=== PATIENT | male | born 1940 | race Caucasian/White ===

== ENCOUNTER → 2017-04-19 | Outpatient (CLI) | payer OTHER | LOC: BMCIMAGING 11:39 | PROVIDERS: ATTEND Family Medicine | DX: S69.92XA Unspecified injury of left wrist, hand and finger(s), initial encounter (principal); M18.32 Unilateral post-traumatic osteoarthritis of first carpometacarpal joint, left hand ==

== ENCOUNTER → 2017-05-16 | Outpatient (CLI) | payer OTHER | LOC: BMCIMAGING 10:11 | PROVIDERS: ATTEND Physician Assistant | DX: S52.502D Unspecified fracture of the lower end of left radius, subsequent encounter for closed fracture with routine healing (principal) ==

== ENCOUNTER 2018-12-18 19:45 | Observation (INO) | payer OTHER ==
--- NOTE | 2018-12-18 19:44 | EDPHY ---
HPI/HX/ROS/PE/MDM Narrative: CHIEF COMPLAINT: Syncope HPI: This patient is a 78-year-old male with history of CAD s/p stent placement, hypertension, hypothyroid. He arrives today via EMS following a syncopal event. He had eaten dinner out at [employer] with family. He felt well during the meal, but afterwards was sitting and felt as if the blood was draining out of his head. He announced he felt he was going to pass out and had a syncopal event in which he slumped forward in his chair. His family members caught him, and they deny any trauma. Family states he was unconscious about one minute. No tonic-clonic activity noted. After this he appeared dizzy and diaphoretic. Family called EMS. The patient had one episode of vomiting in transport. EMS administered 325mg ASA and 4mg Zofran. Currently, the patient feels well. 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 No chest pain at that time. He was evaluated at this ED, had stent placement one week after. The patient denies any current chest pain, shortness of breath, fever, or other associated symptoms. REVIEW OF SYSTEMS: A comprehensive 10 system review of systems is otherwise negative aside from elements mentioned in the history of present illness and medical decision making. PMH: CAD s/p stent placement. Hypertension. Hyperlipidemia. Hypothyroid. SOCIAL HISTORY: Family at bedside. PHYSICAL EXAM: General:Patient is alert, in no acute distress. ENT:Eyes are normal to inspection. ENT inspection normal. Neck: Normal inspection. Full range of motion. Respiratory:No respiratory distress. Breath sounds normal bilaterally. Cardiovascular: Regular rate and rhythm. Strong peripheral pulses. Normal cap refill. Abdomen:The abdomen is nontender to palpation. There are no peritoneal signs. There are normal bowel sounds. Back: Normal to inspection. No tenderness to palpation. Skin: Normal color. No rash. Warm and dry. Extremities: Normal appearance. Full range of motion. Neuro: Oriented x3. Normal motor function. Normal sensory function. ED Course: 19:45 Met EMS on arrival. 78 y/o male with history of CAD s/p stent placement presents following a syncopal event this evening at dinner. Plan for EKG, labs including CBC, chemistries, POC troponin. 20:11 EKG was ordered and interpreted by myself. Please see [facility] system for official reading. POC Troponin negative. 20:51 Reassessed. Discussed imaging and laboratory results. I recommended admission for monitoring and cardiology follow up in the morning tomorrow. Patient's family member at bedside notes he has had several similar events in the past which seem to be associated with rich foods. The patient and his family are amenable to the plan for admission. 22:08 Spoke with hospitalist service. Dr. Long accepts admission to PCU for syncope. - Data Points Laboratory Results: Laboratory Results 12/18/18 19:45 12/18/18 19:45 12/18/18 12/18/18 12/18/18 20:05 19:45 19:45 WBC 12.15 10^3/uL H 10^3/uL (3.80-9.50) RBC 4.24 10^6/uL L 10^6/uL (4.40-6.38) Hgb 13.3 g/dL L g/dL (13.7-17.5) Hct 40.3 % % (40.0-51.0) MCV 95.0 fL fL (81.5-99.8) MCH 31.4 pg pg (27.9-34.1) MCHC 33.0 g/dL g/dL (32.4-36.7) RDW 13.8 % % (11.5-15.2) Plt Count 312 10^3/uL 10^3/uL (150-400) MPV 10.3 fL fL (8.7-11.7) Neut % (Auto) 55.0 % % (39.3-74.2) Lymph % (Auto) 32.0 % % (15.0-45.0) [place] % (Auto) 9.9 % % (4.5-13.0) Eos % (Auto) 2.1 % % (0.6-7.6) Baso % (Auto) 0.7 % % (0.3-1.7) Nucleat RBC Rel Count 0.0 % % (0.0-0.2) Absolute Neuts (auto) 6.69 10^3/uL H 10^3/uL (1.70-6.50) Absolute Lymphs (auto) 3.89 10^3/uL H 10^3/uL (1.00-3.00) Absolute Monos (auto) 1.20 10^3/uL H 10^3/uL (0.30-0.80) Absolute Eos (auto) 0.25 10^3/uL 10^3/uL (0.03-0.40) Absolute Basos (auto) 0.08 10^3/uL 10^3/uL (0.02-0.10) Absolute Nucleated RBC 0.00 10^3/uL 10^3/uL (0-0.01) Immature Gran % 0.3 % % (0.0-1.1) Immature Gran # 0.04 10^3/uL 10^3/uL (0.00-0.10) Sodium 134 mEq/L L mEq/L (135-145) Potassium 3.9 mEq/L mEq/L (3.5-5.2) Chloride 103 mEq/L mEq/L (97-110) Carbon Dioxide 16 mEq/l L mEq/l (22-31) Anion Gap 15 mEq/L H mEq/L (6-14) BUN 23 mg/dL mg/dL (7-23) Creatinine 1.3 mg/dL mg/dL (0.7-1.3) Estimated GFR 54 Glucose 121 mg/dL H mg/dL (70-100) Calcium 9.2 mg/dL mg/dL (8.5-10.4) POC Troponin I 0.00 ng/mL ng/mL (0.00-0.08) Medications Given: Discontinued Medications Sodium Chloride (Ns) 1,000 mls @ 0 mls/hr IV EDNOW ONE; Wide Open PRN Reason: Protocol Stop: 12/18/18 19:49 Last Admin: 12/18/18 19:55 Dose: 1,000 mls Lorazepam (Ativan Injection) 1 mg IVP EDNOW ONE Stop: 12/18/18 21:17 Last Admin: 12/18/18 21:18 Dose: Not Given Point of Care Test Results: Chemistry 12/18/18 20:05 POC Troponin I 0.00 ng/mL ng/mL (0.00-0.08) General Time Seen by Provider: 12/18/18 19:45 Initial Vital Signs: Initial Vital Signs Temperature (C) 36.4 C 12/18/18 19:49 Heart Rate 62 12/18/18 19:49 Respiratory Rate 18 12/18/18 19:49 Blood Pressure 112/61 12/18/18 19:49 O2 Sat (%) 97 12/18/18 19:49 O2 Delivery Mode Room Air Allergies/Adverse Reactions: doxazosin mesylate [From Cardura] Allergy (Mild, Verified 03/06/11 11:36) Hypotension Home Medications: Medication Instructions Recorded Alfuzosin HCl [Alfuzosin HCl ER] 10 mg PO DAILY 12/18/18 Aspirin EC [Aspirin EC 81 mg (*)] 81 mg PO DAILY 12/18/18 Dapsone 50 mg PO DAILY@06 12/18/18 Levothyroxine [Synthroid 100 mcg 100 mcg PO DAILY06 12/18/18 (*)] Metoprolol Succinate Xr [Toprol Xl 25 mg PO HS 12/18/18 25 mg (*)] Multivitamins [Multivitamin (*)] 1 each PO DAILY 12/18/18 Pravastatin Sodium 20 mg PO HS 12/18/18 Departure - Departure Disposition: [facility] Inpatient Acute Clinical Impression: Syncope Qualifiers: Syncope type: unspecified Qualified Code(s): R55 - Syncope and collapse Condition: Fair Referrals: Patient,NotPresent [Unknown] - As per Instructions Report Scribed for: Estrada Quarles Report Scribed by: Jodie Robbins Date of Report: 12/18/18 Time of Report: 19:44 Physician Review and Approval Statement: Portions of this note were transcribed by an ED scribe. I personally performed the history, physical exam, and medical decision making; and confirm the accuracy of the information in the transcribed note.
[2018-12-18] MEDS ORDERED: NS 1,000 ML IV ONE (19:48)
[2018-12-18 20:26] LABS: PLATELET COUNT 312 10^3/uL (150-400)
[2018-12-18] MEDS ORDERED: LORazepam 2 MG/ML INJ IVP ONE (21:16)
[2018-12-18] MEDS ORDERED: ONDANSETRON DISINTEGRATING 4 MG TAB PO PRN (22:11)
[2018-12-18] MEDS ORDERED: ACETAMINOPHEN 325 MG TAB PO PRN (22:11)
[2018-12-18] MEDS ORDERED: ONDANSETRON 4 MG/2 ML VIAL IVP PRN (22:11)
--- NOTE | 2018-12-18 22:31 | CPEKG ---
Test Reason : OPEN Blood Pressure : / mmHG Vent. Rate : 072 BPM Atrial Rate : 071 BPM P-R Int : 188 ms QRS Dur : 090 ms QT Int : 456 ms P-R-T Axes : 086 063 046 degrees QTc Int : 500 ms Sinus rhythm Consider left ventricular hypertrophy Borderline prolonged QT interval Confirmed by Estrada Quarles ([id number]) on 12/18/2018 10:31:15 PM Referred By: Estrada Quarles Confirmed By:Estrada Quarles
--- NOTE | 2018-12-19 00:55 | PDGENHP ---
History and Physical - Chief Complaint Syncope - History of Present Illness 78 yo M w/ hx of CAD, HTN, and hypothyroid presents after syncopal event. The patient went out for dinner this evening. After dinner he felt like "the blood was draining out of his head" and he slumped over in his chair. He returned to baseline mental status quickly with no seizure like activity or chest pain. He vomited en route to the ED with EMS. At the time of my evaluation he is asymptomatic. He tells me this has happened several times before, usually associated with meals. He had an abnormal stress test and stent placement at [facility] in 2012. His work-up here is thus far unremarkable. He is being admitted for observation. Case discussed with ED physician Dr. Quarles; records reviewed and summarized above. History Information - Allergies/Home Medication List Allergies/Adverse Reactions: doxazosin mesylate [From Cardura] Allergy (Mild, Verified 03/06/11 11:36) Hypotension Home Medications: Alfuzosin HCl [Alfuzosin HCl ER] 10 mg PO DAILY 12/18/18 [Last Taken 12/18/18] Aspirin EC [Aspirin EC 81 mg (*)] 81 mg PO DAILY 12/18/18 [Last Taken 12/18/18] Dapsone 50 mg PO DAILY@06 12/18/18 [Last Taken 12/18/18] Levothyroxine [Synthroid 100 mcg (*)] 100 mcg PO DAILY06 12/18/18 [Last Taken ] Metoprolol Succinate Xr [Toprol Xl 25 mg (*)] 25 mg PO HS 12/18/18 [Last Taken 12/17/18] Multivitamins [Multivitamin (*)] 1 each PO DAILY 12/18/18 [Last Taken 12/18/18] Pravastatin Sodium 20 mg PO HS 12/18/18 [Last Taken 12/17/18] I have personally reviewed and updated: family history, medical history - Past Medical History coronary artery disease, hypertension Additional medical history: Hypothyroid - Surgical History Reports: coronary stent - Family History Additional family history: Alzheimer's dementia - Social History Smoking Status: Never smoked Review of Systems Review of Systems: ROS: 10pt was reviewed & negative except for what was stated in HPI & below Physical Exam Physical Exam: Temp Pulse Resp BP Pulse Ox 36.8 C 59 L 17 149/83 H 90 L 12/18/18 23:13 12/18/18 23:13 12/18/18 23:13 12/18/18 23:13 12/18/18 23:13 Constitutional: no apparent distress, not in pain Eyes: PERRL, EOMI Ears, Nose, Mouth, Throat: moist mucous membranes, no oral mucosal ulcers Cardiovascular: regular rate and rhythym, systolic murmur (3/6 systolic murmur @ RUSB) Respiratory: no respiratory distress, clear to auscultation Gastrointestinal: normoactive bowel sounds, soft, non-tender abdomen Skin: warm, normal color Musculoskeletal: full muscle strength, no muscle tenderness Neurologic: AAOx3, CN II-XII Intact Psychiatric: interacting appropriately, not anxious Lab Data & Imaging Review 12/18/18 19:45 12/18/18 19:45 WBC 12.15 10^3/uL (3.80-9.50) H 12/18/18 19:45 RBC 4.24 10^6/uL (4.40-6.38) L 12/18/18 19:45 Hgb 13.3 g/dL (13.7-17.5) L 12/18/18 19:45 Hct 40.3 % (40.0-51.0) 12/18/18 19:45 MCV 95.0 fL (81.5-99.8) 12/18/18 19:45 MCH 31.4 pg (27.9-34.1) 12/18/18 19:45 MCHC 33.0 g/dL (32.4-36.7) 12/18/18 19:45 RDW 13.8 % (11.5-15.2) 12/18/18 19:45 Plt Count 312 10^3/uL (150-400) 12/18/18 19:45 MPV 10.3 fL (8.7-11.7) 12/18/18 19:45 Neut % (Auto) 55.0 % (39.3-74.2) 12/18/18 19:45 Lymph % (Auto) 32.0 % (15.0-45.0) 12/18/18 19:45 [place] % (Auto) 9.9 % (4.5-13.0) 12/18/18 19:45 Eos % (Auto) 2.1 % (0.6-7.6) 12/18/18 19:45 Baso % (Auto) 0.7 % (0.3-1.7) 12/18/18 19:45 Nucleat RBC Rel Count 0.0 % (0.0-0.2) 12/18/18 19:45 Absolute Neuts (auto) 6.69 10^3/uL (1.70-6.50) H 12/18/18 19:45 Absolute Lymphs (auto) 3.89 10^3/uL (1.00-3.00) H 12/18/18 19:45 Absolute Monos (auto) 1.20 10^3/uL (0.30-0.80) H 12/18/18 19:45 Absolute Eos (auto) 0.25 10^3/uL (0.03-0.40) 12/18/18 19:45 Absolute Basos (auto) 0.08 10^3/uL (0.02-0.10) 12/18/18 19:45 Absolute Nucleated RBC 0.00 10^3/uL (0-0.01) 12/18/18 19:45 Immature Gran % 0.3 % (0.0-1.1) 12/18/18 19:45 Immature Gran # 0.04 10^3/uL (0.00-0.10) 12/18/18 19:45 Sodium 134 mEq/L (135-145) L 12/18/18 19:45 Potassium 3.9 mEq/L (3.5-5.2) 12/18/18 19:45 Chloride 103 mEq/L (97-110) 12/18/18 19:45 Carbon Dioxide 16 mEq/l (22-31) L 12/18/18 19:45 Anion Gap 15 mEq/L (6-14) H 12/18/18 19:45 BUN 23 mg/dL (7-23) 12/18/18 19:45 Creatinine 1.3 mg/dL (0.7-1.3) 12/18/18 19:45 Estimated GFR 54 12/18/18 19:45 Glucose 121 mg/dL (70-100) H 12/18/18 19:45 Calcium 9.2 mg/dL (8.5-10.4) 12/18/18 19:45 POC Troponin I 0.00 ng/mL (0.00-0.08) 12/18/18 20:05 Visualized and Interpreted EKG results: Yes EKG Interpretation: Positive for: normal sinsus rhythm, other (Qtc 500) Assessment & Plan Assessment: 78 yo M w/ hx of CAD, HTN, and hypothyroid presents after syncopal event. Plan: 1. Syncope - History consistent with vasovagal event noting this occurred after dinner and followed by vomiting. He has had several similar episodes in the past. He does, however, have a fairly significant murmur on exam so I feel a TTE is reasonable in this case. - Observe in PCU - Monitor on telemetry - TTE ordered to evaluate significant murmur 2. Hx CAD - With stent placement at [facility] in 2012. Denies chest pain at this time, ECG does not demonstrate acute ischemia and troponin is negative. - Continue home medications 3. Hypothyroid - Continue LTX 4. Hyponatremia - Mild, possibly due to vomiting. - Repeat BMP in the morning after IVF 5. Leukocytosis - Suspect reactive, no signs or symptoms of infection. - Monitor CBC Diet - Regular Code - Full Ppx - LMWH Dispo - Admit under observation status
[2018-12-19 04:43] LABS: PLATELET COUNT 257 10^3/uL (150-400)
[2018-12-19] MEDS ORDERED: LEVOTHYROXINE 100 MCG TAB PO SCH (06:00)
[2018-12-19] MEDS ORDERED: DAPSONE 100 MG TAB PO SCH (06:00)
[2018-12-19 07:18] VITALS: BP 150/81
[2018-12-19] MEDS ORDERED: ASPIRIN EC 81 MG TAB PO SCH (09:00)
[2018-12-19] MEDS ORDERED: MULTIVITAMINS 1 EACH TAB PO SCH (09:00)
[2018-12-19] MEDS ORDERED: Alfuzosin Hcl [Alfuzosin Hcl Er] 10 MG PO SCH (09:00)
[2018-12-19] MEDS ORDERED: ENOXAPARIN 40 MG/0.4 ML SYR SC SCH (09:00)
--- NOTE | 2018-12-19 10:41 | ECHO ---
[email or web address] [address] Main: [phone] Echocardiography Examination Transthoracic Name: BETTY ACOSTA MR#: [id number] Study Date: 12/19/2018 Study Time: 08:25 AM Date of : 1940 Age: 78 year(s) Height: 182.9 cm (72 in.) Weight: 79.38 kg (175 lb.) BSA: 2.01 m2 Gender: Male Examination: Echo Contrast: Image Quality: Adequate Rhythm: Heart Rate: 69 bpm BP: 150 mmHg/81 mmHg Indication: Cardiac: syncope, Murmur Procedure Staff Referring Physician: [employer]der Mill Operator: Toya Reese [facility] Reading Physician: Andrew Souza MD Requesting Provider: Ordering Physician: Jorge L Ghosh Indication: Cardiac: syncope, Murmur Measurements Chambers AV/MV Label Value Normal Value Label Value Normal Value LVOTd 2.2 cm (1.9cm - 2.1cm) AR PHT 0.95 s LVOT VTI 24.6 cm (18cm - 22cm) AR PHT 945 ms LVDd, 2D 4.4 cm (4.2cm - 5.9cm) AR Vmax 3.11 m/s LVDs, 2D 2.8 cm (2.1cm - 4cm) AV PGmax 33 mmHg IVSd, 2D 1.1 cm (0.6cm - 1.1cm) AV PGmean 20 mmHg LVPWd, 2D 0.9 cm (0.6cm - 1cm) AV Vmax 2.89 m/s LVEF, BP 65 % (55% - 70%) DESTIN (VTI) 1.2 cm2 LVEF, 2D 68 % (54% - 74%) MV E Vmax 0.72 m/s LVOT PGmean 2 mmHg MV A Vmax 0.97 m/s LVOT Vmean 0.75 m/s MV E/A 0.74 RVDd, 2D 4 cm (1.9cm - 3.8cm) MV E/E' lateral 11.7 TAPSE 2.3 cm MV E/E' septal 11.7 (0.45 - 1.25) LA Volume, BP 75 ml (18ml - 58ml) MV DT 197 ms LADs, 2D 4.1 cm (3cm - 4cm) MV E' septal 0.06 m/s LAESV index, BP 37.3 ml/m2 MV E' lateral 0.06 m/s RA Area 20 cm2 MV E/E' mean 12 Additional Vessels MV E' mean 0.06 m/s Label Value Normal Value TV/PV AoAsc 3.5 cm Label Value Normal Value Patient: BETTY ACOSTA Study Date: 12/19/2018 Page 1 of 3 08:25 AM AoRoot, 2D 3.6 cm (1.4cm - 2.6cm) RA Pressure 7 mmHg RVSP 39 mmHg TR Pmax 32 mmHg TR Vmax 2.84 m/s PV PGmax 2 mmHg PV Vmax, Caliper 0.74 m/s (0.6m/s - 0.9m/s) Conclusions Left Ventricle: CONCLUSIONS:1)Normal LV size and systolic function with a LVEF of 65% and normal wall motions.2)Mild concentric LVH with mild diastolic dysfunction noted.3)Mild to moderate left atrial and mild right atrial enlargement(s) noted.4)Mild to moderate and mild AI noted.5)Mild MR without MV prolapse.6)Mild TR with upper normal PA pressures (PAS=39mmHg). Findings Left Ventricle: Left ventricle is normal in size. CONCLUSIONS: 1)Normal LV size and systolic function with a LVEF of 65% and normal wall motions. 2)Mild concentric LVH with mild diastolic dysfunction noted. 3)Mild to moderate left atrial and mild right atrial enlargement(s) noted. 4)Mild to moderate and mild AI noted. 5)Mild MR without MV prolapse. 6)Mild TR with upper normal PA pressures (PAS=39mmHg). EF evaluated by EF (biplane Abel's). The ejection fraction, measured by Simpsons method, is 65 %. There is mild concentric left ventricular hypertrophy. There are no regional wall motion abnormalities. Grade I Diastolic Dysfunction. Mild Left ventricular hypertrophy . Right Ventricle: Upper normal size right ventricle. Right ventricular systolic function is normal. Left Atrium: The left atrium is mildly to moderately dilated. Right Atrium: The right atrium is mildly dilated. Mitral Valve: Mild mitral regurgitation. No mitral valve stenosis. There is a focal calcification on the tip of the mitral anterior leaflet . There is mild mitral thickening. There is mild mitral annular calcification. Aortic Valve: Mild aortic regurgitation is present. There is mild to moderate aortic stenosis. Aortic leaflets exhibit mild to moderate calcification. The aortic valve is trileaflet. Aortic Valve Measurements AV Vmax is 2.89 m/s. AV PGmax is 33 mmHg. AV PGmean is 20 mmHg. DESTIN (VTI) is 1.2 cm2. Tricuspid Valve: Tricuspid valve leaflets are normal in appearance and function. Mild tricuspid regurgitation. No tricuspid valve stenosis. Right Ventricular systolic pressure is measured at 39 mmHg. Pulmonary artery pressure is mildly increased. Pulmonic Valve: Pulmonic valve is poorly visualized. No pulmonic valve regurgitation is evident. Aorta: The aorta is normal. The aortic root size in 2D measures 3.6 cm. The aortic root exhibits normal size. The ascending aorta measures 3.5 cm. Ascending aorta is normal in size. Aorta Measurements AoRoot, 2D is 3.6 cm. IVC: The inferior vena cava is normal in size and course. Pericardium: Patient: BETTY ACOSTA Study Date: 12/19/2018 Page 2 of 3 08:25 AM No pericardial effusion. Exam Details Procedure Ordered: Echo Procedure Status: Routine study Image Quality: Adequate Facility Location: Cardiac Echo 1 (No Signature Object) Patient: BETTY ACOSTA Study Date: 12/19/2018 Page 3 of 3 08:25 AM [id number]
--- NOTE | 2018-12-19 11:36 | PDDCSUM ---
Discharge Summary Discharge Summary: Date of Admission: 12/18/2018 Date of Discharge: 12/19/2018 Procedures: TTE Followup: Cardiology, Dr. Truong, PCP, Dr. Ribeiro Hospital Course Problem List: 78 yo M w/ hx of CAD, HTN, and hypothyroid presents after syncopal event. Plan: 1. Syncope - History consistent with vasovagal event noting this occurred after dinner and followed by vomiting. He has had several similar episodes in the past. - Monitored on telemetry without acute abnormality - Trop negative x3, EKG without acute ST-T wave changes - TTE performed which shows mild to moderate , normal LV size and systolic function, EF 65% and no RWMA - Patient to followup with Financial Services Representative, Dr. Truong, within 1-2 weeks after discharge to review hospitalization and further evaluate and management TTE findings 2. Hx CAD - With stent placement at [facility] in 2012. Denies chest pain at this time, ECG does not demonstrate acute ischemia and troponins are negative. - Continue home medications 3. Hypothyroid - Continue LTX 4. Hyponatremia - Mild, possibly due to vomiting. - Improved to 135 morning of discharge 5. Leukocytosis - Suspect reactive, no signs or symptoms of infection. - Improved to 7.7 on morning of discharge
--- NOTE | 2018-12-19 11:45 | ASMTLACE ---
LACE Length of stay for Answers: Less than 1 day current admission Acuity / Level of Answers: No Care: Did the patient have an inpatient admission? Comorbidities - select Answers: Coronary Artery Disease all that apply Other Notes: HTN # of Emergency department Answers: 1-2 visits in the last 6 months Score: 4 Date Signed: 12/19/2018 11:44 AM Electronically Signed By:Rebecca Estrella RN
--- NOTE | 2018-12-19 11:45 | ASMTCMCOM ---
CM Note CM Note Notes: Reviewed chart, pt admitted to hospital for a syncopal episode after dinner at a restaurant. Pt has experienced this several times in the past and considered more vasovagal in nature. He does have a murmur noted and shalini have a TTE. Pt lives at home with his , anticipate he will dc home when medically stable. CM available for any changes. DC Plan: Independent Date Signed: 12/19/2018 11:43 AM Electronically Signed By:Rebecca Estrella RN
[2018-12-19] MEDS ORDERED: METOPROLOL SUCCINATE XR 25 MG TAB PO SCH (21:00)
[2018-12-19] MEDS ORDERED: PRAVASTATIN SODIUM 20 MG TAB PO SCH (21:00)
== END 2018-12-19 13:45 | disposition home or self-care (01) ==
LOC: EDUNIT# → EDBD → F2W 23:07
PROVIDERS: ADMIT Student in an Organized Health Care Education/Training Program; ATTEND Student in an Organized Health Care Education/Training Program
DX: R55 Syncope and collapse (principal); E86.9 Volume depletion, unspecified; E87.1 Hypo-osmolality and hyponatremia; I25.10 Atherosclerotic heart disease of native coronary artery without angina pectoris; Z95.5 Presence of coronary angioplasty implant and graft; I10 Essential (primary) hypertension; E78.5 Hyperlipidemia, unspecified; E03.9 Hypothyroidism, unspecified
CPT/HCPCS: 93005; 93306; 96361; 96372; 96374; 99285; G0378; J1650; 84484-ER

== ENCOUNTER 2018-12-30 19:36 | Observation (INO) | payer OTHER ==
[2018-12-30] MEDS ORDERED: NS 1,000 ML IV ONE (19:45)
[2018-12-30 19:59] LABS: PLATELET COUNT 319 10^3/uL (150-400)
--- NOTE | 2018-12-30 20:14 | EDPHY ---
H & P Stated Complaint: near-syncope, bradycardia, hypotension Time Seen by Provider: 12/30/18 19:40 HPI/ROS: CHIEF COMPLAINT: Near syncope, bradycardia, hypotension HISTORY OF PRESENT ILLNESS: This is a 78-year-old male was recently admitted to the hospital 10 days ago following a syncopal event felt to be vasovagal. At that admission the patient had echocardiogram revealing [id number] aortic stenosis, and troponins were negative x3. He was referred to follow up with Dr. Truong. Patient reports he saw Dr. Truong 6 days ago at which time a Zio monitor was placed. Patient also states that Dr. Truong added for losartan for improved blood pressure control. Patient currently has been taking metoprolol as well for quite some time. Tonight the patient was out having dinner with family members. He went to stand up, to leave the restaurant ,and felt like the blood was rushing from his head. He sat down, and had a near syncopal event. On paramedics arrival the patient had systolic blood pressure of 70 with heart rate of 30. Monitor revealed sinus bradycardia. In route to the hospital, after receiving some IV fluids, blood pressure improved and improved heart rate of 60. However, the patient had a recurrent episode en route with EMS, again becoming very lightheaded, nauseous, felt like he was going to pass out, dropped his blood pressure to 70s, became bradycardic to the 30s, and vomited profusely. Patient tells me he was otherwise feeling well. He denies any vomiting or diarrhea recently, had no chest pain during the event or shortness of breath. REVIEW OF SYSTEMS: A comprehensive 10 system review of systems was reviewed and is otherwise negative aside from elements mentioned in the history of present illness and medical decision making. PAST MEDICAL HISTORY: Coronary artery disease with stent placement 2012, hypertension, vasovagal syncopal event. SOCIAL HISTORY: Here with his . Had alcohol this evening. VITAL SIGNS Reviewed by me. GENERAL: Well-developed, well-nourished, slightly pale, denies complaints. HEENT: Atraumatic. Eyes: No icterus, no injection. Conjunctiva are not pale. Mouth: moist mucous membranes. No erythema or lesions. Neck: supple with no adenopathy. LUNGS: Clear to auscultation bilaterally, no wheezes, rhonchi or rales. CARDIAC: Regular rate and rhythm, no rubs, murmurs or gallops. ABDOMEN: Soft, nontender, nondistended, bowel sounds normal. BACK: No CVA tenderness. EXTREMITIES: No trauma. Trace edema at the ankles. Range of motion is normal throughout. NEURO: Alert and oriented, grossly nonfocal. SKIN: Slightly cool to the touch, slight diaphoresis, no rash. PSYCHIATRIC: Normal mentation, no agitation. - Personal History Current Tetanus Diphtheria and Acellular Pertussis (TDAP): Unsure - Medical/Surgical History Hx Asthma: No Hx Chronic Respiratory Disease: No Hx Diabetes: No Hx Cardiac Disease: Yes Hx Renal Disease: No Hx Cirrhosis: No Hx Alcoholism: No Hx HIV/AIDS: No Hx Splenectomy or Spleen Trauma: No Other PMH: cardiac stents x2, celiacs disease, hypothyroid, high cholesterol, syncope - Social History Smoking Status: Never smoked Constitutional: Initial Vital Signs Heart Rate 70 12/30/18 19:36 Respiratory Rate 14 12/30/18 19:36 Blood Pressure 118/67 12/30/18 19:36 O2 Sat (%) 95 12/30/18 19:36 O2 Delivery Mode Room Air Allergies/Adverse Reactions: gluten Allergy (Intermediate, Verified 12/30/18 20:01) doxazosin mesylate [From Cardura] Allergy (Mild, Verified 12/30/18 20:01) Hypotension Home Medications: Medication Instructions Recorded Alfuzosin HCl [Alfuzosin HCl ER] 10 mg PO DAILY@199912/18/18 Aspirin EC [Aspirin EC 81 mg (*)] 81 mg PO DAILY 12/18/18 Dapsone 50 mg PO DAILY@12/18/18 Levothyroxine [Synthroid 100 mcg 100 mcg PO DAILY06 12/18/18 (*)] Metoprolol Succinate Xr [Toprol Xl 25 mg PO DAILY 12/18/18 25 mg (*)] Multivitamins [Multivitamin (*)] 1 each PO DAILY 12/18/18 Pravastatin Sodium 20 mg PO HS 12/18/18 Indomethacin [Indocin 25 mg (*)] 50 mg PO DAILY PRN 12/30/18 Losartan Potassium [Cozaar 50 mg 50 mg PO DAILY 12/30/18 (*)] Medical Decision Making - Diagnostics EKG Interpretation: 12-LEAD EKG: Please see the full report in [employer] [facility]. My interpretation: Normal sinus rhythm, rate of 69, normal intervals, QT is 444. ED Course/Re-evaluation: 78-year-old male presents 2nd episode in 10 days of profound bradycardia associated with near-syncope/syncope and vomiting. Emergency department tech did contact [employer] ( ) regarding the patient's ekg monitor tech, Zio patch. This model's data can only be accessed when physically uploaded after it is sent back to [employer] for analysis. At this time, we are unable to see if the patient's episode of near-syncope today was associated with any arrhythmia. Patient's EKG here demonstrates normal sinus rhythm. Chest x-ray is unremarkable. Laboratory evaluation: Bedside troponin 0.03. Normal H&H, normal electrolytes. Patient will be readmitted to the hospital for further evaluation and cardiology consultation. Differential Diagnosis: Differential diagnosis of the patient's presenting complaint was considered including but not limited to vasovagal syncope, arrhythmia, sick sinus syndrome , heart block, dehydration, and blood loss. Consult/Admit Bed Type: Dr. Hever Mancia, U - Data Points Laboratory Results: Laboratory Results 12/30/18 19:44 12/30/18 19:44 Medications Given: Discontinued Medications Aspirin Buffered (Aspirin Ec) 81 mg PO DAILY [facility] Stop: 06/29/19 08:59 Last Admin: 12/31/18 08:24 Dose: 81 mg Dapsone (Dapsone) 50 mg PO DAILY@0600 CHRIS Stop: 01/30/19 05:59 Last Admin: 12/31/18 06:46 Dose: 50 mg Sodium Chloride (Ns) 1,000 mls @ 0 mls/hr IV EDNOW ONE; Wide Open PRN Reason: Protocol Stop: 12/30/18 19:46 Last Admin: 12/30/18 20:00 Dose: 1,000 mls Levothyroxine Sodium (Synthroid) 100 mcg PO DAILY06 CHRIS Stop: 06/29/19 05:59 Last Admin: 12/31/18 06:46 Dose: 100 mcg Losartan Potassium (Cozaar) 50 mg PO DAILY [facility] Stop: 06/29/19 08:59 Last Admin: 12/31/18 08:24 Dose: 50 mg Metoprolol Succinate (Toprol Xl) 25 mg PO DAILY [facility] Stop: 06/29/19 08:59 Last Admin: 12/31/18 08:23 Dose: 25 mg Multivitamins (Tab-A-Maya) 1 each PO DAILY CHRIS Stop: 06/29/19 08:59 Last Admin: 12/31/18 08:24 Dose: 1 each Point of Care Test Results: Chemistry 12/30/18 19:48 POC Troponin I 0.03 ng/mL ng/mL (0.00-0.08) Departure - Departure Disposition: [facility] Inpatient Acute Clinical Impression: Bradycardia Syncope Qualifiers: Syncope type: vasovagal syncope Qualified Code(s): R55 - Syncope and collapse Condition: Good
--- NOTE | 2018-12-30 21:03 | CPEKG ---
Test Reason : OPEN Blood Pressure : / mmHG Vent. Rate : 069 BPM Atrial Rate : 069 BPM P-R Int : 187 ms QRS Dur : 085 ms QT Int : 444 ms P-R-T Axes : 087 059 056 degrees QTc Int : 476 ms Sinus rhythm Borderline prolonged QT interval Confirmed by Tori Torres ([id number]) on 12/30/2018 9:03:35 PM Referred By: Tori Torres Confirmed By:Tori Torres
[2018-12-30] MEDS ORDERED: ONDANSETRON DISINTEGRATING 4 MG TAB PO PRN (21:49)
[2018-12-30] MEDS ORDERED: ONDANSETRON 4 MG/2 ML VIAL IVP PRN (21:49)
[2018-12-30] MEDS ORDERED: HYDROCODONE/APAP 5/325 TAB PO PRN (21:49)
[2018-12-30] MEDS ORDERED: HYDROmorphONE/DILAUDID 1 MG/ML INJ IVP PRN (21:49)
[2018-12-30] MEDS ORDERED: oxyCODONE IR 5 MG TAB PO PRN (21:49)
[2018-12-30] MEDS ORDERED: PROMETHAZINE HCL 25 MG/ML INJ IVP PRN (21:49)
[2018-12-30] MEDS ORDERED: ACETAMINOPHEN 325 MG TAB PO PRN (21:49)
[2018-12-30] MEDS ORDERED: INDOMETHACIN 25 MG CAP PO PRN (21:53)
--- NOTE | 2018-12-30 23:37 | PDGENHP ---
History and Physical - Chief Complaint syncope - History of Present Illness 78 yo M with PMH of CAD as well as recurrent syncope, recently admitted with post prandial syncope associated with n/v and thought to be vasovagal, admitted again with recurrent syncope. Patient was discharged on 12/19 for that prior syncopal event and did f/u with cardiology at which time he was noted to be hypertensive to the 180s and was started on losartan, also a zio cafeteria monitor was placed. He was out to dinner last night, and after eating and drinking a jessica, he got up to leave and noted that he felt as if her were going to pass out, thought he needed to sit down but then decided he better lie down, and shortly after lying down on a bench was noted to lose consciousness. This lasted seconds to maybe a minute, EMS was called and by the time they arrived he was awake but diaphoretic and pale and nauseated, he did vomit in the ambulance. Per report his BP was in the 70-80s systolic by EMS and HR noted to be in the 30s. By the time he arrived in the ER vital signs normalized with HR in the 70-80s and BP somewhat hypertensive. Patient states he has had episodes of syncope or near syncope at least every 4 years in the past, most often associated with having just eaten. He did have one episode in 2012 that was not associated with eating, and shortly after that event on f/u with cardiology he ended up getting 3 coronary stents placed due to abnormal stress test. History Information - Allergies/Home Medication List Allergies/Adverse Reactions: gluten Allergy (Intermediate, Verified 12/30/18 20:01) doxazosin mesylate [From Cardura] Allergy (Mild, Verified 12/30/18 20:01) Hypotension Home Medications: Alfuzosin HCl [Alfuzosin HCl ER] 10 mg PO DAILY@199912/18/18 [Last Taken ] Aspirin EC [Aspirin EC 81 mg (*)] 81 mg PO DAILY 12/18/18 [Last Taken 12/30/18] Dapsone 50 mg PO DAILY@12/18/18 [Last Taken 12/30/18] Levothyroxine [Synthroid 100 mcg (*)] 100 mcg PO DAILY06 12/18/18 [Last Taken ] Metoprolol Succinate Xr [Toprol Xl 25 mg (*)] 25 mg PO DAILY 12/18/18 [Last Taken 12/30/18] Multivitamins [Multivitamin (*)] 1 each PO DAILY 12/18/18 [Last Taken 12/30/18] Pravastatin Sodium 20 mg PO HS 12/18/18 [Last Taken 12/29/18] Indomethacin [Indocin 25 mg (*)] 50 mg PO DAILY PRN 12/30/18 [Last Taken Unknown ] Losartan Potassium [Cozaar 50 mg (*)] 50 mg PO DAILY 12/30/18 [Last Taken ] I have personally reviewed and updated: family history, medical history, social history, surgical history - Past Medical History coronary artery disease, hypertension, hyperlipidemia Additional medical history: Hypothyroid. BPH. recurrent syncope, vasovagal. VHD: with mild to mod as - Surgical History Reports: coronary stent - Family History Additional family history: Alzheimer's dementia - Social History Smoking Status: Never smoked Alcohol Use: Occasionally Drug Use: None Additional social history: Review of Systems Review of Systems: ROS: 10pt was reviewed & negative except for what was stated in HPI & below Physical Exam Physical Exam: Temp Pulse Resp BP Pulse Ox 36.4 C 70 18 144/82 H 94 12/30/18 23:18 12/30/18 23:18 12/30/18 23:18 12/30/18 23:18 12/30/18 23:18 Constitutional: no apparent distress, appears nourished Eyes: PERRL, anicteric sclera Ears, Nose, Mouth, Throat: moist mucous membranes, hearing normal Cardiovascular: regular rate and rhythym, systolic murmur, No edema Respiratory: no respiratory distress, no rales or rhonchi, clear to auscultation Gastrointestinal: normoactive bowel sounds, soft, non-tender abdomen Genitourinary: no bladder tenderness Skin: warm, normal color Musculoskeletal: full muscle strength Neurologic: AAOx3 Psychiatric: interacting appropriately, not anxious, not encephalopathic Lab Data & Imaging Review 12/30/18 19:44 12/30/18 19:44 WBC 8.06 10^3/uL (3.80-9.50) 12/30/18 19:44 RBC 3.95 10^6/uL (4.40-6.38) L 12/30/18 19:44 Hgb 12.8 g/dL (13.7-17.5) L 12/30/18 19:44 Hct 37.6 % (40.0-51.0) L 12/30/18 19:44 MCV 95.2 fL (81.5-99.8) 12/30/18 19:44 MCH 32.4 pg (27.9-34.1) 12/30/18 19:44 MCHC 34.0 g/dL (32.4-36.7) 12/30/18 19:44 RDW 13.5 % (11.5-15.2) 12/30/18 19:44 Plt Count 319 10^3/uL (150-400) 12/30/18:44 MPV 10.2 fL (8.7-11.7) 12/30/18 19:44 Neut % (Auto) 52.5 % (39.3-74.2) 12/30/18:44 Lymph % (Auto) 33.0 % (15.0-45.0) 12/30/18:44 Ferry % (Auto) 11.3 % (4.5-13.0) 12/30/18:44 Eos % (Auto) 2.1 % (0.6-7.6) 12/30/18:44 Baso % (Auto) 0.9 % (0.3-1.7) 12/30/18:44 Nucleat RBC Rel Count 0.0 % (0.0-0.2) 12/30/18:44 Absolute Neuts (auto) 4.23 10^3/uL (1.70-6.50) 12/30/18 19:44 Absolute Lymphs (auto) 2.66 10^3/uL (1.00-3.00) 12/30/18:44 Absolute Monos (auto) 0.91 10^3/uL (0.30-0.80) H 12/30/18 19:44 Absolute Eos (auto) 0.17 10^3/uL (0.03-0.40) 12/30/18 19:44 Absolute Basos (auto) 0.07 10^3/uL (0.02-0.10) 12/30/18 19:44 Absolute Nucleated RBC 0.00 10^3/uL (0-0.01) 12/30/18 19:44 Immature Gran % 0.2 % (0.0-1.1) 12/30/18 19:44 Immature Gran # 0.02 10^3/uL (0.00-0.10) 12/30/18 19:44 Sodium 135 mEq/L (135-145) 12/30/18 19:44 Potassium 3.7 mEq/L (3.5-5.2) 12/30/18 19:44 Chloride 102 mEq/L (97-110) 12/30/18 19:44 Carbon Dioxide 18 mEq/l (22-31) L 12/30/18 19:44 Anion Gap 15 mEq/L (6-14) H 12/30/18 19:44 BUN 22 mg/dL (7-23) 12/30/18 19:44 Creatinine 1.2 mg/dL (0.7-1.3) 12/30/18 19:44 Estimated GFR 59 12/30/18 19:44 Glucose 146 mg/dL (70-100) H 12/30/18 19:44 Calcium 9.1 mg/dL (8.5-10.4) 12/30/18 19:44 Total Bilirubin 0.8 mg/dL (0.1-1.4) 12/30/18 19:44 Conjugated Bilirubin 0.1 mg/dL (0.0-0.5) 12/30/18 19:44 Unconjugated Bilirubin 0.7 mg/dL (0.0-1.1) 12/30/18 19:44 AST 30 IU/L (17-59) 12/30/18 19:44 ALT 32 IU/L (21-72) 12/30/18 19:44 Alkaline Phosphatase 75 IU/L (38-126) 12/30/18 19:44 POC Troponin I 0.03 ng/mL (0.00-0.08) 12/30/18 19:48 Troponin I < 0.012 ng/mL (0.000-0.034) 12/30/18 22:46 Total Protein 6.2 g/dL (6.3-8.2) L 12/30/18 19:44 Albumin 4.1 g/dL (3.5-5.0) 12/30/18 19:44 Lipase 123 IU/L (23-300) 12/30/18 19:44 Visualized and Interpreted Chest x-ray results: Yes Chest X-Ray results: other (bibasilar atelectasis) Visualized and Interpreted EKG results: Yes EKG Interpretation: Positive for: normal sinsus rhythm Assessment & Plan Assessment: 78 yo M with PMH of CAD and recurrent syncope admitted for syncope 1 week after similar admission # syncope: given hx again sounds very consistent with a vasovagal event in this patient with history of recurrent syncope occurring after meals and associated with n/v. He does have zio heart monitor in place, however unable currently to extract the data, reports of bradycardia shortly after event per EMS, likely due to vagal episode. Was also recently started on alfuzosin and has had increased syncopal issues with alpha blockers in the past, will dc for now. Plan to monitor on tele overnight, serial trops, cardiology evaluation in the am and f/u of zio data. If cardiology feels this is likely vagal event, would benefit from counseling regarding ongoing management # CAD: hx of stents x [address] Blue, denies chest pain with any of these events most recently, as above, continue home meds # VhD: mild to moderate noted on echo, murmur appreciated on exam, no e/o CHF # HTN: BP for the most part well controlled since arrival, continue home meds of metoprolol, losartan # anemia: mild and stable, recommend op colonoscopy if not up to date # hypothyroid: continue levothyroxine # BPH: on alfuzosin, is on BB as well and notes that in the past when on alpha blockers that was felt to be contributing to his issues with recurrent syncope, will dc for now, consider transition to finasteride versus f/u with urology # HLD: continue statin # observation status # Patient new to my care. Old records reviewed and summarized as above. Care plan reviewed with ER doctor and further hx obtained from patients present at bedside.
[2018-12-31] MEDS ORDERED: LEVOTHYROXINE 100 MCG TAB PO SCH (06:00)
[2018-12-31] MEDS ORDERED: DAPSONE 100 MG TAB PO SCH (06:00)
[2018-12-31] MEDS ORDERED: ASPIRIN EC 81 MG TAB PO SCH (09:00)
[2018-12-31] MEDS ORDERED: METOPROLOL SUCCINATE XR 25 MG TAB PO SCH (09:00)
[2018-12-31] MEDS ORDERED: LOSARTAN POTASSIUM 50 MG TAB PO SCH (09:00)
[2018-12-31] MEDS ORDERED: MULTIVITAMINS 1 EACH TAB PO SCH (09:00)
[2018-12-31 10:19] LABS: PLATELET COUNT 281 10^3/uL (150-400)
[2018-12-31 12:22] VITALS: BP 149/85
--- NOTE | 2018-12-31 14:24 | GCON ---
[f rep st] CONSULTATION CARDIAC CONSULTATION DATE OF CONSULTATION: 12/31/2018 CHIEF COMPLAINT: Syncope. HISTORY OF PRESENT ILLNESS: This is a 78-year-old gentleman, who is usually followed by Dr. Truong at [facility]. He has a history of what appears to be vasovagal syncope. He has a ZIO monitor in pl eduardo at this time. He does have a history of coronary artery disease, and 3 years ago he had stent pl aced. He apparently has had a stress test within the last year at the [facility], without is chemia. In talking to him, he has no changes in his exercise tolerance, palpitations, syncope, or ot her issues. His event, which is similar to prior events, occurs after eating and drinking. He stood up and felt lightheaded, and then had a loss of consciousness, and EMS was called. Apparently, he w as awake, and nauseated, and vomited in the ambulance. His heart rate was low at that time; however, in the ER his heart rate was back in the 70s and 80s. EKG shows normal sinus rhythm without ischemi a. In speaking to him, he has had events like this in the past. Unfortunately, we cannot download t he information from a ZIO monitor at this time. He had no evidence of cardiac bio markers being posi tive. Overnight, he has been comfortable and stable. He feels well. There is no new medicines or s upplements. He has a history of celiac, but no other GI issues or known GI dysmotility. At this poi nt, I had a long discussion with he and his about our options. For now, he will continue his ZI O monitor. I will try to arrange for a monitor, which will give us more easily downloadab le information if need be. This can be mailed to him after discharge. I do not think he needs an ex ercise stress test at this time as he is not exhibiting ACS. There are no new medications or other s upplements. He is not having any fever, chills, or other problems at this time. I did recommend kosta t he follow up with [facility] for possible GI dysmotility issues, which may be causing some o f his problems, although he is not a diabetic. ALLERGIES: Include gluten and doxazosin. MEDICATIONS: 1. He is on aspirin. 2. Dapsone. 3. Alfuzosin, which is old and tolerated. 4. Levothyroxine. 5. Metoprolol. 6. Pravastatin. 7. Losartan. PAST MEDICAL HISTORY: 1. Hypothyroidism. 2. This recurrent syncope. 3. CAD status post stenting in 2013 without recurrence. FAMILY HISTORY: No early cardiovascular disease. SOCIAL HISTORY: He does not abuse alcohol, is a nonsmoker. REVIEW OF SYSTEMS: 10-point review of systems is negative except for HPI. LAB DATA: Hemoglobin 12, white count 6. Potassium was initially 3.7, now 4.2. Creatinine 1.1. Tro ponins negative. Albumin 4.1. Normal LFTs. ASSESSMENT: Syncope, probable vasovagal at least given the commonality of postprandial syncope. Lona belcher does have a ZIO monitor in place, which did record the event last evening. We will replace this with a monitor and hopefully get the recording back in the next week or so. He does not appear to have any evidence of ACS or myocardial infarction. He is feeling well today, comfortable w ithout fever, or other issues. No changes will be made. Patient will be discharged home. Recommend follow up with Gastroenterology physicians for their input as to possible dysmotility. Patient will start eating smaller portion sizes until we can help sort this out. In speaking to him, his event t hat he had last night is similar to all his prior events. No cardiac etiology has ever been noted. Questions answered. /[id number]/MODL
--- NOTE | 2018-12-31 14:55 | ASMTCMCOM ---
CM Note CM Note Notes: Plan of care reviewed in am rounds. 78 year old male admitted via ED with near syncope. Cardiology evaluation done. He is medically stable for discharge with f/u as he has a heart monitor and should follow up with GI is recommended. He will discharge home with family support. No current needs identiifed. CM available should other needs arise. Plan: DC to home. Date Signed: 12/31/2018 02:54 PM Electronically Signed By:Licha Coyle RN
--- NOTE | 2018-12-31 17:35 | PDDCSUM ---
Discharge Summary Discharge Summary: Date of Admission: 12/30/2018 Date of Discharge: 12/31/2018 Consults: Cardiology Procedures: Followup: PCP, GI Hospital Course Problem List: 78 yo M with PMH of CAD and recurrent syncope admitted for syncope 1 week after similar admission # syncope: given hx again sounds very consistent with a vasovagal event in this patient with history of recurrent syncope occurring after meals and associated with n/v. - He does have zio heart monitor in place, however unable currently to extract the data, reports of bradycardia shortly after event per EMS, likely due to vagal episode. Cardiology will switch this to a [employer] monitor. - Was also recently started on alfuzosin and has had increased syncopal issues with alpha blockers in the past, will dc for now. - Monitored on tele overnight, serial trops negative - Cardiology evaluation this morning who believes patient with postprandial syncope, recommending GI follow for further evaluation # CAD: hx of stents x [address] Blue, denies chest pain with any of these events most recently, as above, continue home meds # VhD: mild to moderate noted on echo, murmur appreciated on exam, no e/o CHF # HTN: BP for the most part well controlled since arrival, continue home meds of metoprolol, losartan # anemia: mild and stable, recommend op colonoscopy if not up to date # hypothyroid: continue levothyroxine # BPH: on alfuzosin, is on BB as well and notes that in the past when on alpha blockers that was felt to be contributing to his issues with recurrent syncope, will dc for now, consider transition to finasteride versus f/u with urology # HLD: continue statin
[2018-12-31] MEDS ORDERED: PRAVASTATIN SODIUM 20 MG TAB PO SCH (21:00)
--- NOTE | 2019-01-07 17:04 | CPEKG ---
Test Reason : OPEN Blood Pressure : / mmHG Vent. Rate : 062 BPM Atrial Rate : 062 BPM P-R Int : 183 ms QRS Dur : 084 ms QT Int : 433 ms P-R-T Axes : 082 013 055 degrees QTc Int : 440 ms Sinus rhythm Confirmed by Sebastien Tony ([id number]) on 01/07/2019 5:04:46 PM Referred By: Hever Mancia Confirmed By:Sebastien Tony
== END 2018-12-31 15:12 | disposition home or self-care (01) ==
LOC: EDUNIT# → F2W 22:27
PROVIDERS: ADMIT Internal Medicine; ATTEND Internal Medicine
DX: R55 Syncope and collapse (principal); I25.10 Atherosclerotic heart disease of native coronary artery without angina pectoris; Z95.5 Presence of coronary angioplasty implant and graft; I35.0 Nonrheumatic aortic (valve) stenosis; I10 Essential (primary) hypertension; D64.9 Anemia, unspecified; E03.9 Hypothyroidism, unspecified; N40.0 Benign prostatic hyperplasia without lower urinary tract symptoms; E78.5 Hyperlipidemia, unspecified
CPT/HCPCS: 71046; 93005; 99285; G0378; 84484-ER

== ENCOUNTER 2019-01-28 09:07 | Observation (INO) | payer OTHER | END 2019-01-29 13:20 | disposition home or self-care (01) | LOC: F2N 09:07 → F2W 09:22 ==